=== PATIENT | female | born 1995 | race Caucasian/White ===

== ENCOUNTER 2019-09-25 19:34 | Emergency (ER) | payer MEDICAID ==
[~2019-09-25] VITALS: Ht 165.1 cm; Wt 59.9 kg
[2019-09-25 21:19] LABS: BASOPHILS % (AUTO) 0.4 % (0-1); EOSINOPHILS # (AUTO) 0.1 X10'3 (0-0.9); EOSINOPHILS % (AUTO) 0.8 % (0-6); HEMATOCRIT 48.4 % (35.0-45.0); HEMOGLOBIN 16.7 g/dl (12.0-16.0); LYMPHOCYTES # (AUTO) 1.2 X10'3 (1.1-4.8); LYMPHOCYTES % (AUTO) 13.8 % (21-51); MEAN CORPUSCULAR HEMOGLOBIN 30.6 PG (27.0-31.0); MEAN CORPUSCULAR HGB CONC 34.4 g/dL (33.0-36.5); MEAN CORPUSCULAR VOLUME 88.8 FL (78-98); MEAN PLATELET VOLUME 8.5 FL (7.4-10.4); MONOCYTES # (AUTO) 0.9 X10'3 (0-0.9); MONOCYTES % (AUTO) 10.7 % (2-12); NEUTROPHILS # (AUTO) 6.4 X10'3 (1.8-7.7); NEUTROPHILS % (AUTO) 74.3 % (42-75); PLATELET COUNT 201 X10'3 (140-440); RED BLOOD COUNT 5.45 X10'6 (4.20-5.60); RED CELL DISTRIBUTION WIDTH 12.9 % (11.5-14.5); WHITE BLOOD COUNT 8.7 X10'3 (4.5-11.0)
[2019-09-25 21:20] LABS: CLARITY,URINE CLEAR (Clear); COLOR,URINE YELLOW (Yellow); GLUCOSE, URINE NEGATIVE (Neg); KETONES,URINE NEGATIVE (Neg); LEUKOCYTE ESTERASE ,URINE NEGATIVE (Neg); NITRITES, URINE NEGATIVE (Neg); OCCULT BLOOD,URINE TRACE-INTACT (Neg); PH,URINE 5.5 (4.8-8.0); PROTEIN,URINE NEGATIVE (Neg); UROBILINOGEN,URINE 0.2 E.U/dL (0.2-1.0)
[2019-09-25 21:22] LABS: URINE HCG NEGATIVE (NEG)
[2019-09-25 21:26] LABS: UA COLLECTION TYPE CLN CATCH MIDSTREAM
[2019-09-25 21:30] LABS: ALANINE AMINOTRANSFERASE 40 U/L (12-78); ALBUMIN 4.3 G/DL (3.4-5.0); ALBUMIN/GLOBULIN RATIO 1.1 (1.1-1.5); ALKALINE PHOSPHATASE 112 IU/L (46-116); ANION GAP 12 (8-16); ASPARTATE AMINO TRANSFERASE 19 U/L (10-37); BILIRUBIN,TOTAL 0.7 MG/DL (0.1-1.0); BLOOD UREA NITROGEN 11 MG/DL (7-18); BUN/CREATININE RATIO 15.3 (6.6-38.0); CALCIUM 9.2 MG/DL (8.5-10.1); CHLORIDE 105 MMOL/L (99-107); CREATININE 0.72 MG/DL (0.40-0.90); GLUCOSE 79 MG/DL (70-104); LIPASE 130 U/L (73-393); POTASSIUM 3.7 MMOL/L (3.5-5.1); SODIUM 142 MMOL/L (135-145); TOTAL PROTEIN 8.3 G/DL (6.4-8.2); eGFR > 90 ML/MIN
[2019-09-25 21:31] LABS: BACTERIA,URINE 1+ /HPF (Neg); RBC,URINE 0-2 /HPF (0-2); SQUAMOUS EPITHELIAL CELL,UR MODERATE /LPF (FEW); WBC,URINE 0-4 /HPF (0-4)
[2019-09-25] MEDS ORDERED: morphine 4 MG/ML inj SYRINge IM ONE (22:10)
[2019-09-25] MEDS ORDERED: ketorolac trometh inj. 60 MG/2 ML VIAL IM ONE (22:10)
[2019-09-25] MEDS ORDERED: ondansetron 4mg rapidly disintigrating tab PO ONE (22:10)
--- NOTE | 2019-09-25 22:49 | NUR ---
PT REQUESTING D/C, PO CHALLENGE PASSED. BONG AWARE
[2019-09-25 22:53] VITALS: BP 114/69
== END 2019-09-25 22:55 | disposition home or self-care (01) ==
LOC: ER 19:35
DX: R10.9 Unspecified abdominal pain (principal); R19.7 Diarrhea, unspecified; R11.10 Vomiting, unspecified; F17.200 Nicotine dependence, unspecified, uncomplicated; Z72.89 Other problems related to lifestyle
CPT/HCPCS: 36415; 80053; 81001; 81025; 83690; 85025; 96372; 99284; J1885; J2270

== ENCOUNTER 2022-10-02 11:19 | Emergency (ER) | payer MEDICAID ==
[~2022-10-02] VITALS: Ht 165.1 cm; Wt 71.4 kg
[2022-10-02 13:33] LABS: ALANINE AMINOTRANSFERASE 59 U/L (12-78); ALBUMIN 4.1 G/DL (3.4-5.0); ALBUMIN/GLOBULIN RATIO 1.5 (1.1-1.5); ALKALINE PHOSPHATASE 105 IU/L (46-116); ANION GAP 9 (8-16); ASPARTATE AMINO TRANSFERASE 23 U/L (10-37); BILIRUBIN,TOTAL 0.7 MG/DL (0.1-1.0); BLOOD UREA NITROGEN 10 MG/DL (7-18); BUN/CREATININE RATIO 12.3 (10.0-20.0); CALCIUM 8.7 MG/DL (8.5-10.1); CHLORIDE 105 MMOL/L (99-107); CREATININE 0.81 MG/DL (0.40-0.90); GLUCOSE 94 MG/DL (70-104); POTASSIUM 3.6 MMOL/L (3.5-5.1); SODIUM 139 MMOL/L (135-145); TOTAL CARBON DIOXIDE 25.2 MMOL/L (24-32); TOTAL PROTEIN 6.9 G/DL (6.4-8.2); eGFR 87 ML/MIN
[2022-10-02 13:37] LABS: BASOPHILS % (AUTO) 0.2 % (0-1); EOSINOPHILS # (AUTO) 0.2 X10'3 (0-0.9); EOSINOPHILS % (AUTO) 2.3 % (0-6); HEMATOCRIT 46.1 % (35.0-45.0); HEMOGLOBIN 16.1 g/dl (12.0-16.0); LYMPHOCYTES # (AUTO) 1.6 X10'3 (1.1-4.8); LYMPHOCYTES % (AUTO) 18.1 % (21-51); MEAN CORPUSCULAR HEMOGLOBIN 30.3 PG (27.0-31.0); MEAN CORPUSCULAR VOLUME 86.6 FL (78-98); MEAN PLATELET VOLUME 8.4 FL (7.4-10.4); MONOCYTES # (AUTO) 0.7 X10'3 (0-0.9); MONOCYTES % (AUTO) 8.6 % (2-12); NEUTROPHILS # (AUTO) 6.1 X10'3 (1.8-7.7); NEUTROPHILS % (AUTO) 70.8 % (42-75); PLATELET COUNT 229 X10'3 (140-440); RED BLOOD COUNT 5.32 X10'6 (4.20-5.60); RED CELL DISTRIBUTION WIDTH 13.9 % (11.5-14.5); WHITE BLOOD COUNT 8.6 X10'3 (4.5-11.0)
[2022-10-02] MEDS ORDERED: oxyCODONE/APAP 5-325mg tablet PO ONE (13:45)
[2022-10-02] MEDS ORDERED: diphenhydrAMINE 25mg capsule PO ONE (13:45)
[2022-10-02 14:04] VITALS: BP 118/77
[2022-10-02] MEDS ORDERED: SUCR1TAB PO (14:05)
[2022-10-02] MEDS ORDERED: ONDA4TAB12 PO (14:05)
[2022-10-02] MEDS ORDERED: OMEP40CA21 PO (14:05)
--- NOTE | 2022-10-02 14:40 | NUR ---
Sent second UA down to lab. Correctly labeled, new orders put in for UA.
[2022-10-02 15:30] LABS: URINE HCG NEGATIVE (NEG)
[2022-10-02 15:36] LABS: CLARITY,URINE TURBID (Clear); COLOR,URINE YELLOW (Yellow); GLUCOSE, URINE NEGATIVE (Neg); KETONES,URINE TRACE mg/dl (Neg); LEUKOCYTE ESTERASE ,URINE NEGATIVE (Neg); OCCULT BLOOD,URINE MODERATE (Neg); PH,URINE 5.5 (4.8-8.0); PROTEIN,URINE 30 mg/dl (Neg)
[2022-10-02 15:38] LABS: UA COLLECTION TYPE CLN CATCH MIDSTREAM
[2022-10-02 15:40] LABS: NITRITES, URINE NEGATIVE (Neg)
[2022-10-02 15:42] LABS: RBC,URINE NONE SEEN /HPF (0-2); WBC,URINE 0-4 /HPF (0-4)
[2022-10-02 15:43] LABS: AMORPHOUS URATES 4+; BACTERIA,URINE 1+ /HPF (Neg); MUCUS STRANDS NONE SEEN /LPF (Neg); SQUAMOUS EPITHELIAL CELL,UR MANY /LPF (FEW)
== END 2022-10-02 16:02 | disposition home or self-care (01) ==
LOC: ER 11:19
DX: R10.13 Epigastric pain (principal); Z72.89 Other problems related to lifestyle; Z79.899 Other long term (current) drug therapy
CPT/HCPCS: 36415; 80053; 81001; 81025; 84145; 85025; 99283; Q0163

== ENCOUNTER 2024-11-22 21:54 | Emergency (ER) | payer MEDICAID ==
[~2024-11-22] VITALS: Ht 162.6 cm; Wt 62.2 kg
[~2024-11-22 21:54] MED LIST: ONDA-243 PO; SUCR1TAB PO
[2024-11-22] MEDS ORDERED: CIPR10DR RIGHT EAR (23:47)
--- NOTE | 2024-11-22 23:48 | Physician Documentation ---
History of Present Illness ~ Chief Complaint: Ear Pain Stated Complaint: EAR PAIN Time Seen by MD: 23:18 Primary Medical Doctor: Anne restrepo Source: patient Mode of Arrival: POV Exam Limitations: no limitations HPI Patient presents secondary to right-sided ear pain onset this morning. No drainage from the ear. No fevers or chills. No recent illnesses. No sick contacts. Was asked, but otherwise denies review of systems. Medication Reconciliation Allergies: Coded Allergies: No Known Allergies (Unverified , 04/23/15) Scheduled Ciprofloxacin Hcl/Hc Otic Susp* (Cipro Hc Otic Susp*), 3 DROP RIGHT EAR Q12H Scheduled PRN ONDANSETRON ODT 4mg tablet (Ondansetron Odt), 1 TABLET PO Q6H PRN for nausea/vomiting Sucralfate (Sucralfate), 1 GM PO TID PRN for pain Past Medical History Past Medical History: *GI/HEPATOBILIARY* Past Surgical History: no surgical history Alcohol Use: Occasionally Drug Use: none Lives with: Family Lives In: Home Occupation: employed, student Review of Systems ROS Review of systems negative except documented in HPI. Physical Exam Vital Signs: Temperature: 97.8, Source: Temporal, Heart Rate: 90, Respiratory Rate: 16, BP: 122/67, Pulse Oximetry: 97, Weight: 62.250 Oxygen Flow Rate: 0 Pulse Oximetry Reflects: adequate oxygenation Physical Exam General: Awake, alert, oriented. No apparent distress Neck: Supple. Normal range of motion. Lymphadenopathy Ears: Left ear no pain with palpation. External auditory canal is without erythema or swelling. There is no cerumen. Tympanic membrane intact with normal light reflex. Right ear. There is pain with palpation manipulation of the ear. There is some erythema to the external auditory canal. Cerumen in his noted in the external auditory canal. Tympanic membrane is intact and there is an normal light reflex. No bulging of the tympanic membrane. Respiratory: Lungs are clear to auscultation bilaterally. No respiratory distre ss. Chest: Normal shape and size. No accessory muscle use. Cardiovascular: Regular rate and rhythm. S1-S2. No murmur, gallop, rub. Psychiatric: Normal mood and affect. Skin: Normal color. Warm and dry. Progress Results/Orders Results/Orders Orders - VIRGIE CARMONA NP Cipro 0.3%/Dexameth 0.1% Otic (Ciproflox (11/22/24 23:55) Completed Orders - VIRGIE CARMONA NP Ciprofloxacin/Hct Otic Susp (Cipro Hc Ot (11/22/24 23:50) Ibuprofen Tablet (Motrin Tablet) (11/22/24 23:50) Medications Received in ER Medications (Trade) Dose Ordered Sig/Pritesh Route PRN Reason Start Time Stop Time Status Last Admin Dose Admin (Motrin tablet) 400 mg ONCE ONCE PO 11/22/24 23:50 11/22/24 23:51 DC 11/23/24 00:03 400 MG (CIPROFLOX-DEXAMETH OTIC SUSP 10ml bottle) 4 drp BID RIGHT EAR 11/22/24 23:55 11/23/24 00:04 4 DRP Vital Signs 11/22/24 11/22/24 11/22/24 22:11 23:04 23:48 Temp 97.8 Pulse 90 78 Resp 18 16 16 B/P (MAP) 122/67 130/72 (91) Pulse Ox 97 99 O2 Flow Rate 0 Medical Decision Making Findings Patient presents secondary to ear pain onset today. She has no fevers or chills or evidence of systemic infection. No lymphadenopathy on exam. No past history. Exam consistent with otitis externa. Prescription for ear drops and given ibuprofen [facility]. Encouraged to follow up with primary care provider and return for new or worsening symptoms. Ear Diff. Dx: Considerations: Include: Abrasion, Cerumen impaction, Foreign body, Otitis externa, Otitis media, Perforation, Referred pain-dental, Referred pain-pharyngitis, Tympanic Membrane Injury Departure Time of Disposition: 23:45 Disposition: 01 HOME / SELF CARE / HOMELESS Impression: Primary Impression: Otitis externa Qualified Codes: H60.391 - Other infective otitis externa, right ear Discharge Instructions: Otitis Externa, [id number] Additional Instructions: Take your ear drops as prescribed. Follow up with primary care provider. Return for new/worsening symptoms. Referrals: NO PRIMARY CARE PROVIDER (PCP) Prescriptions Ciprofloxacin Hcl/Hc Otic Susp* (Cipro Hc Otic Susp*) 10 Ml Bottle 3 DROP RIGHT EAR Q12H for 7 Days, #10 ML Prov: VIRGIE CARMONA NP 11/22/24 Education Educated regarding: diagnosis, treatment, need for follow up Signature Scribe Signature: No scribe Attestation: The note accurately reflects work and decisions made by me.Virgie Scott NP 11/23/24 00:44 This note was created with the assistance of voice recognition software whereby errors in grammar, syntax, and/or spelling may have occurred despite active proofreading efforts by the author. Please do not hesitate to contact the provider for clarification or for questions regarding the content of this document. VIRGIE CARMONA NP Nov 22, 2024 23:48
[2024-11-23] MEDS: ibuprofen tablet 400 MG TABLET PO ONE (00:03)
[2024-11-23] MEDS: CIPROFLOXACIN HCL/DEXAMETH 7.5 ML DROPS.SUSP RIGHT EAR SCH (00:04)
[2024-11-23] MEDS: Cipro HC otic suspension 10ML bottle RIGHT EAR ONE (00:06)
[2024-11-23 00:40] VITALS: BP 126/80; PULSE 70; RESP 16; TEMP 97.8; O2SAT 99
== END 2024-11-23 | disposition home or self-care (01) ==
LOC: ER 21:54
DX: H60.91 Unspecified otitis externa, right ear (principal)
CPT/HCPCS: 99283